=== PATIENT | male | born 1995 | race Caucasian/White ===

== ENCOUNTER 2017-02-23 01:55 | Emergency (ER) | payer BC ==
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
== END 2017-02-23 02:18 | disposition disaster alternative care site (69) ==
LOC: GMED 01:55
DX: S01.511A Laceration without foreign body of lip, initial encounter (principal); S00.531A Contusion of lip, initial encounter; F17.210 Nicotine dependence, cigarettes, uncomplicated; F10.129 Alcohol abuse with intoxication, unspecified; X58.XXXA Exposure to other specified factors, initial encounter; Y92.810 Car as the place of occurrence of the external cause

== ENCOUNTER → 2017-02-23 | Emergency (ER) | payer BC, SELFPAY | END | disposition disaster alternative care site (69) | LOC: GAMB 05:08 | DX: S09.93XA Unspecified injury of face, initial encounter (principal); Y09 Assault by unspecified means ==